=== PATIENT | male | born 1965 | race American Indian/Alaskan Native ===

== ENCOUNTER 2021-11-22 09:41 | Emergency (ER) | payer MEDICAID ==
[2021-11-22] MEDS ORDERED: SODIUM CHLORIDE 0.9% 500 ML 500 ML IV ONE (11:34)
[2021-11-22] MEDS ORDERED: PANTOPRAZOLE 40 MG INJ IV ONE (11:34)
[2021-11-22] MEDS ORDERED: ONDANSETRON 4 MG/2 ML INJ IV ONE (11:34)
[2021-11-22 12:43] LABS: Basophils % (Auto) 0.5 % (0.0-1.8); Eosinophils # (Auto) 0.2 K/mm3 (0.0-0.4); Eosinophils % (Auto) 3.8 % (0.0-4.3); Hematocrit 29.8 % (35.5-45.6); Hemoglobin 9.3 gm/dl (11.8-15.2); Mean Corpuscular HGB Conc 31 % (32-34); Mean Corpuscular Volume 90 fl (84-94); Monocytes # (Auto) 0.6 K/mm3 (0.0-0.8); Platelet Count 349 K/mm3 (140-440); Red Blood Count 3.32 M/mm3 (3.65-5.03); Red Cell Distribution Width 16.4 % (13.2-15.2)
[2021-11-22 12:51] LABS: INR 0.91 (0.87-1.13)
[2021-11-22 13:05] LABS: Alanine Aminotransferase 18 units/L (7-56); Albumin 3.4 g/dL (3.9-5); Blood Urea Nitrogen 16 mg/dL (9-20); Calcium 8.5 mg/dL (8.4-10.2); Hemolysis Index 1
[2021-11-22 13:13] LABS: BUN/Creatinine Ratio 27
--- NOTE | 2021-11-22 13:16 | XRay Report ---
CHEST 1 VIEW 11/22/2021 12:08 PM INDICATION / CLINICAL INFORMATION: GI Bleed. COMPARISON: 03/14/2020 FINDINGS: SUPPORT DEVICES: Tracheostomy tube terminates approximately 4.4 cm from the angy. HEART / MEDIASTINUM: No significant abnormality. LUNGS / PLEURA: No significant pulmonary or pleural abnormality. No pneumothorax. ADDITIONAL FINDINGS: No significant additional findings. IMPRESSION: 1. No acute findings. Signer Name: Dean Felix DO Signed: 11/22/2021 1:12 PM Workstation Name: [id number]
--- NOTE | 2021-11-22 14:01 | Emergency Department Report ---
ED General Adult HPI - General Chief complaint: GI Bleed Stated complaint: VOMITING Time Seen by Provider: 11/22/21 11:34 Source: EMS Mode of arrival: Stretcher Limitations: Altered Mental Status, Physical Limitation - History of Present Illness Initial comments: [place] REPORTS PATIENT HAS A GI BLEED, TRACH PRESENT -: hour(s) Associated Symptoms: denies: denies other symptoms, confusion, chest pain, headaches, loss of appetite - Related Data Home Medications Medication Instructions Recorded Confirmed Last Taken clonazePAM 0.5 mg PO QAM 06/24/14 03/14/20 02/11/20 13:04 Midodrine [Proamatine] 5 mg PO QDAY 11/29/15 03/14/20 02/11/20 13:05 Previous Rx's Medication Instructions Recorded Last Taken Type ALBUTEROL NEB's [Proventil 0.083% 2.5 mg IH Q4HRT PRN nebu 02/12/20 Unknown Rx NEBS] Acetaminophen [Acetaminophen TAB] 650 mg PO Q4H PRN tablet 02/12/20 Unknown Rx Lipase/Protease/Amylase [Pancreaze 1 each FEEDTUBE PRN PRN capsule 02/12/20 Unknown Rx 10,500 Unit] Simple Syrup 30 ml FEEDTUBE PRN PRN oral.liqd 02/12/20 Unknown Rx Sodium Bicarbonate 325 mg FEEDTUBE PRN PRN tablet 02/12/20 Unknown Rx Sodium Chloride 0.9% Int [Sodium 10 ml IV BID syringe 02/12/20 Unknown Rx Chloride Flush Syringe 10 ml] levETIRAcetam [Keppra] 500 mg FEEDTUBE BID@0600,1800 02/12/20 Unknown Rx oral.liqd Amoxicillin Oral Liqd [Amoxicillin 500 mg PO Q8HR 5 Days ml 03/18/20 Unknown Rx Suspension 25 MG/1 ML] Lansoprazole Solutab [Prevacid 30 mg FEEDTUBE QDAY tab.rapdis 03/18/20 Unknown Rx Solutab] metroNIDAZOLE [Flagyl TAB] 500 mg PO Q8HR 5 Days #15 tablet 03/18/20 Unknown Rx polyethylene glycoL 3350 [Miralax 17 gm FEEDTUBE QDAY powd.pack 03/18/20 Unknown Rx 3350] Famotidine [Pepcid] 20 mg PO BID #30 tablet 11/22/21 Unknown Rx Omeprazole 40 mg PO DAILY #30 11/22/21 Unknown Rx Allergies Allergy/AdvReac Type Severity Reaction Status Date / Time No Known Allergies Allergy Unverified 11/22/21 10:06 ED Review of Systems ROS: Stated complaint: VOMITING Other details as noted in HPI Constitutional: denies: chills, fever Eyes: denies: eye pain, eye discharge, vision change ENT: denies: ear pain, throat pain Respiratory: denies: cough, shortness of breath, wheezing Cardiovascular: denies: chest pain, palpitations Endocrine: no symptoms reported Gastrointestinal: denies: abdominal pain, nausea, diarrhea Genitourinary: denies: urgency, dysuria Musculoskeletal: denies: back pain, joint swelling, arthralgia Skin: denies: rash, lesions Neurological: denies: headache, weakness, paresthesias Psychiatric: denies: anxiety, depression Hematological/Lymphatic: denies: easy bleeding, easy bruising ED Past Medical Hx - Past Medical History Hx Heart Attack/AMI: Yes (NSTEMI 06/2014) Hx Congestive Heart Failure: No Hx Diabetes: No Hx Seizures: Yes Hx Asthma: No Hx COPD: No Hx HIV: No Additional medical history: G tube feedings, cerebral palsy - Surgical History Additional Surgical History: g tube, salivary glands lanced - Social History Smoking Status: Never Smoker - Medications Home Medications: Home Medications Medication Instructions Recorded Confirmed Last Taken Type clonazePAM 0.5 mg PO QAM 06/24/14 03/14/20 02/11/20 13:04 History Midodrine [Proamatine] 5 mg PO QDAY 11/29/15 03/14/20 02/11/20 13:05 History ALBUTEROL NEB's [Proventil 0.083% 2.5 mg IH Q4HRT PRN nebu 02/12/20 03/14/20 Unknown Rx NEBS] Acetaminophen [Acetaminophen TAB] 650 mg PO Q4H PRN tablet 02/12/20 03/14/20 Unknown Rx Lipase/Protease/Amylase [Pancreaze 1 each FEEDTUBE PRN PRN capsule 02/12/20 1 05/14/[address] 10,500 Unit] Simple Syrup 30 ml FEEDTUBE PRN PRN oral.liqd 02/12/20 03/14/20 Unknown Rx Sodium Bicarbonate 325 mg FEEDTUBE PRN PRN tablet 02/12/20 03/14/20 Unknown Rx Sodium Chloride 0.9% Int [Sodium 10 ml IV BID syringe 02/12/20 03/14/20 Unknown Rx Chloride Flush Syringe 10 ml] levETIRAcetam [Keppra] 500 mg FEEDTUBE BID@0600,1800 02/12/20 03/14/20 Unknown Rx oral.liqd Amoxicillin Oral Liqd [Amoxicillin 500 mg PO Q8HR 5 Days ml 03/18/20 Unknown Rx Suspension 25 MG/1 ML] Lansoprazole Solutab [Prevacid 30 mg FEEDTUBE QDAY tab.rapdis 03/18/20 Unknown Rx Solutab] metroNIDAZOLE [Flagyl TAB] 500 mg PO Q8HR 5 Days #15 tablet 03/18/20 Unknown Rx polyethylene glycoL 3350 [Miralax 17 gm FEEDTUBE QDAY powd.pack 03/18/20 Unk nown Rx 3350] Famotidine [Pepcid] 20 mg PO BID #30 tablet 11/22/21 Unknown Rx Omeprazole 40 mg PO DAILY #30 11/22/21 Unknown Rx ED Physical Exam - General Limitations: Altered Mental Status, Physical Limitation General appearance: other (trach CP ) - Head Head exam: Present: atraumatic - Eye Eye exam: Present: normal appearance - Cardiovascular Cardiovascular Exam: Present: regular rate - GI/Abdominal GI/Abdominal exam: Present: soft, other (G tube present ) - Neurological Exam Neurological exam: Present: other (cerebral palsy ) ED Course Vital Signs 11/22/21 11/22/21 11/22/21 09:56 10:04 10:35 Temperature 98.5 F Pulse Rate 106 H Respiratory 16 Rate Blood Pressure Blood Pressure 108/79 [Left] O2 Sat by Pulse 99 100 93 Oximetry O2 Sat by Pulse Oximetry [ Assessment] 11/22/21 11/22/21 11/22/21 10:45 11:01 11:14 Temperature Pulse Rate 90 116 H Respiratory 19 19 Rate Blood Pressure 119/68 110/69 Blood Pressure [Left] O2 Sat by Pulse 99 98 100 Oximetry O2 Sat by Pulse Oximetry [ Assessment] 11/22/21 11/22/21 11:15 11:16 Temperature Pulse Rate 88 Respiratory 24 Rate Blood Pressure 110/69 Blood Pressure [Left] O2 Sat by Pulse 99 Oximetry O2 Sat by Pulse 100 Oximetry [ Assessment] ED Medical Decision Making - Lab Data Result diagrams: 11/22/21 12:23 11/22/21 12:23 - Radiology Data Radiology results: report reviewed, image reviewed - Medical Decision Making work up showed stable h.h no active bleeding , vss no distress, pt is under hospice care will add PPI and H1 dexter to his NG tube and follow his H/H , had abhi scope Critical care attestation.: If time is entered above; I have spent that time in minutes in the direct care of this critically ill patient, excluding procedure time. ED Disposition Clinical Impression: Cerebral palsy, Vomiting, Heme + stool Disposition: 03 [facility] Is pt being admited?: No Does the pt Need Aspirin: No Condition: Stable Instructions: Nausea and Vomiting, Adult, Gastrointestinal Bleeding
[2021-11-22 17:34] VITALS: BP 105/64
== END 2021-11-22 17:32 ==
LOC: ED 09:41
DX: G80.9 Cerebral palsy, unspecified (principal); R11.10 Vomiting, unspecified; K92.1 Melena; I21.9 Acute myocardial infarction, unspecified; R56.9 Unspecified convulsions
CPT/HCPCS: 36415; 71045; 80048; 80053; 82140; 83690; 83735; 85025; 85610; 96361; 96374; 96375; 99284; C9113; J2405; J7040

== ENCOUNTER 2022-01-11 20:37 | Emergency (ER) | payer MEDICAID ==
[2022-01-11] MEDS ORDERED: ONDANSETRON 4 MG/2 ML INJ IV ONE (23:19)
--- NOTE | 2022-01-11 23:26 | Emergency Department Report ---
ED N/V/D HPI - General Chief complaint: Nausea/Vomiting/Diarrhea Stated complaint: VOMITING COFFEE GROUND EMESIS Time Seen by Provider: 01/11/22 23:00 Source: patient, EMS Mode of arrival: Stretcher Limitations: No Limitations - History of Present Illness Initial comments: 56 yo M with history cerebral palsy brought in by his child care team lead with concern for nausea and coffee ground emesis that occurred this evening. Pt has history of PUD and had the last Feeding Tube placed in October this year. Tube is been used daily for feeding. No other modifying or associated factors reported. MD complaint: nausea, vomiting - Related Data Home Medications Medication Instructions Recorded Confirmed Last Taken clonazePAM 0.5 mg PO QAM 06/24/14 03/14/20 02/11/20 13:04 Midodrine [Proamatine] 5 mg PO QDAY 11/29/15 03/14/20 02/11/20 13:05 Previous Rx's Medication Instructions Recorded Last Taken Type ALBUTEROL NEB's [Proventil 0.083% 2.5 mg IH Q4HRT PRN nebu 02/12/20 Unknown Rx NEBS] Acetaminophen [Acetaminophen TAB] 650 mg PO Q4H PRN tablet 02/12/20 Unknown Rx Lipase/Protease/Amylase [Pancreaze 1 each FEEDTUBE PRN PRN capsule 02/12/20 Unknown Rx 10,500 Unit] Simple Syrup 30 ml FEEDTUBE PRN PRN oral.liqd 02/12/20 Unknown Rx Sodium Bicarbonate 325 mg FEEDTUBE PRN PRN tablet 02/12/20 Unknown Rx Sodium Chloride 0.9% Int [Sodium 10 ml IV BID syringe 02/12/20 Unknown Rx Chloride Flush Syringe 10 ml] levETIRAcetam [Keppra] 500 mg FEEDTUBE BID@0600,1800 02/12/20 Unknown Rx oral.liqd Amoxicillin Oral Liqd [Amoxicillin 500 mg PO Q8HR 5 Days ml 03/18/20 Unknown Rx Suspension 25 MG/1 ML] Lansoprazole Solutab [Prevacid 30 mg FEEDTUBE QDAY tab.rapdis 03/18/20 Unknown Rx Solutab] metroNIDAZOLE [Flagyl TAB] 500 mg PO Q8HR 5 Days #15 tablet 03/18/20 Unknown Rx polyethylene glycoL 3350 [Miralax 17 gm FEEDTUBE QDAY powd.pack 03/18/20 Unknown Rx 3350] Famotidine [Pepcid] 20 mg PO BID #30 tablet 11/22/21 Unknown Rx Omeprazole 40 mg PO DAILY #30 11/22/21 Unknown Rx Allergies Allergy/AdvReac Type Severity Reaction Status Date / Time No Known Allergies Allergy Unverified 11/22/21 10:06 ED Review of Systems ROS: Stated complaint: VOMITING COFFEE GROUND EMESIS Other details as noted in HPI Comment: All other systems reviewed and negative Gastrointestinal: nausea, vomiting. denies: diarrhea, constipation ED Past Medical Hx - Past Medical History Hx Heart Attack/AMI: Yes (NSTEMI 06/2014) Hx Congestive Heart Failure: No Hx Diabetes: No Hx Seizures: Yes Hx Asthma: No Hx COPD: No Hx HIV: No Additional medical history: G tube feedings, cerebral palsy - Surgical History Additional Surgical History: g tube, salivary glands lanced - Social History Smoking Status: Never Smoker - Medications Home Medications: Home Medications Medication Instructions Recorded Confirmed Last Taken Type clonazePAM 0.5 mg PO QAM 06/24/14 03/14/20 02/11/20 13:04 History Midodrine [Proamatine] 5 mg PO QDAY 11/29/15 03/14/20 02/11/20 13:05 History ALBUTEROL NEB's [Proventil 0.083% 2.5 mg IH Q4HRT PRN nebu 02/12/20 03/14/20 Unknown Rx NEBS] Acetaminophen [Acetaminophen TAB] 650 mg PO Q4H PRN tablet 02/12/20 03/14/20 Unknown Rx Lipase/Protease/Amylase [Pancreaze 1 each FEEDTUBE PRN PRN capsule 02/12/20 03/14/[address] 10,500 Unit] Simple Syrup 30 ml FEEDTUBE PRN PRN oral.liqd 02/12/20 03/14/20 Unknown Rx Sodium Bicarbonate 325 mg FEEDTUBE PRN PRN tablet 02/12/20 03/14/20 Unknown Rx Sodium Chloride 0.9% Int [Sodium 10 ml IV BID syringe 02/12/20 03/14/20 Unknown Rx Chloride Flush Syringe 10 ml] levETIRAcetam [Keppra] 500 mg FEEDTUBE BID@0600,1800 02/12/20 03/14/20 Unknown Rx oral.liqd Amoxicillin Oral Liqd [Amoxicillin 500 mg PO Q8HR 5 Days ml 03/18/20 Unknown Rx Suspension 25 MG/1 ML] Lansoprazole Solutab [Prevacid 30 mg FEEDTUBE QDAY tab.rapdis 03/18/20 Unknown Rx Solutab] metroNIDAZOLE [Flagyl TAB] 500 mg PO Q8HR 5 Days #15 tablet 03/18/20 Unknown Rx polyethylene glycoL 3350 [Miralax 17 gm FEEDTUBE QDAY powd.pack 03/18/20 Unknown Rx 3350] Famotidine [Pepcid] 20 mg PO BID #30 tablet 11/22/21 Unknown Rx Omeprazole 40 mg PO DAILY #30 11/22/21 Unknown Rx ED Physical Exam - General Limitations: No Limitations General appearance: other (Cerebral palsy but stable) - Head Head exam: Present: atraumatic - ENT ENT exam: Present: normal orophraynx, mucous membranes moist, other (sticking out his tongue) - Neck Neck exam: Present: other (Tracheotomy tube). Absent: tenderness - Respiratory Respiratory exam: Present: normal lung sounds bilaterally. Absent: respiratory distress, accessory muscle use - Cardiovascular Cardiovascular Exam: Present: regular rate, normal rhythm, normal heart sounds - GI/Abdominal GI/Abdominal exam: Present: soft, normal bowel sounds, other (feeding tube in place with no leakage ). Absent: distended, tenderness - Extremities Exam Extremities exam: Absent: pedal edema - Back Exam Back exam: Absent: tenderness - Skin Skin exam: Present: warm, normal color ED Course Vital Signs 01/11/22 01/11/22 01/11/22 22:24 22:30 22:35 Temperature 98.9 F Pulse Rate 84 Respiratory 15 Rate Blood Pressure Blood Pressure 130/93 [Left] O2 Sat by Pulse 96 99 98 Oximetry 01/11/22 01/11/22 01/11/22 22:46 23:01 23:15 Temperature Pulse Rate Respiratory Rate Blood Pressure 130/93 143/85 Blood Pressure [Left] O2 Sat by Pulse 99 96 96 Oximetry 01/11/22 01/11/22 01/12/22 23:31 23:45 00:00 Temperature Pulse Rate Respiratory Rate Blood Pressure 114/81 112/62 Blood Pressure [Left] O2 Sat by Pulse 97 97 96 Oximetry 01/12/22 01/12/22 01/12/22 00:15 00:31 00:45 Temperature Pulse Rate Respiratory Rate Blood Pressure 121/79 162/98 119/77 Blood Pressure [Left] O2 Sat by Pulse 100 99 97 Oximetry 01/12/22 01/12/22 01/12/22 01:01 01:15 01:31 Temperature Pulse Rate Respiratory Rate Blood Pressure 119/77 162/98 141/76 Blood Pressure [Left] O2 Sat by Pulse 97 98 96 Oximetry 01/12/22 01/12/22 01/12/22 01:46 02:01 02:15 Temperature Pulse Rate Respiratory Rate Blood Pressure 115/53 115/53 113/69 Blood Pressure [Left] O2 Sat by Pulse 76 L 80 L 100 Oximetry 01/12/22 01/12/22 01/12/22 02:31 02:45 03:01 Temperature Pulse Rate Respiratory Rate Blood Pressure 107/80 113/69 113/69 Blood Pressure [Left] O2 Sat by Pulse 92 98 99 Oximetry 01/12/22 01/12/22 01/12/22 03:16 03:31 03:45 Temperature Pulse Rate Respiratory Rate Blood Pressure 115/75 131/89 123/78 Blood Pressure [Left] O2 Sat by Pulse 99 99 98 Oximetry 01/12/22 01/12/22 01/12/22 04:01 04:15 04:31 Temperature Pulse Rate Respiratory Rate Blood Pressure 123/78 115/89 102/60 Blood Pressure [Left] O2 Sat by Pulse 96 96 93 Oximetry 01/12/22 04:36 Temperature 98.0 F Pulse Rate 77 Respiratory 15 Rate Blood Pressure Blood Pressure 102/60 [Left] O2 Sat by Pulse 93 Oximetry ED Medical Decision Making - Lab Data Result diagrams: 01/12/22 00:43 01/12/22 00:43 - Radiology Data FINDINGS: Images were obtained as best possible in a right anterior oblique position. Lung bases show mild chronic changes. Small nodule in the right base is stable. No obvious pneumonic infiltrates with previous left basilar density clear. PEG tube is now situated in the stomach. Moderate hiatal hernia again seen. Gallbladder without obvious calculi and without definite acute abnormalities. No biliary dilatation. No abnormalities seen of liver, spleen, adrenals, or right kidney. Minimal left nephrolithiasis without acute change. Ureters not dilated and without obvious calculi. Urinary bladder poorly distended. Prostate moderately enlarged. Seminal vesicles are symmetric. Large amount of colonic stool without dilatation again seen. No evidence of bowel obstruction. No inflammatory changes. No free fluid. No lymphadenopathy. Appendix not visualized. The junction of the tail and body of the pancreas shows a bulging appearance not as clearly seen previously. There may be slight hypodensity in this area which is ill-defined. No inflammation is noted. No pancreatic ductal dilatation is seen. Area of bulging has an AP diameter 3.5 cm. IMPRESSION: 1. Continued evidence of chronic prominent constipation 2. Minimal left nephrolithiasis without acute change seen 3. Question of pancreatic mass. Follow-up with multiphase CT may be useful. - Medical Decision Making here with possible GI bleeding -- will go ahead and check his H&H with other routine labs-- and order his CT abd/pel for possible SBO--in the meantime will add zofran + protonix while waiting for the above-- Critical care attestation.: If time is entered above; I have spent that time in minutes in the direct care of this critically ill patient, excluding procedure time. ED Disposition Clinical Impression: Nausea and vomiting in adult patient Constipation Qualifiers: Constipation type: unspecified constipation type Qualified Code(s): K59.00 - Constipation, unspecified Disposition: 01 HOME / SELF CARE / HOMELESS Is pt being admited?: No Does the pt Need Aspirin: No Condition: Stable Instructions: Nausea and Vomiting, Adult, [id number], Constipation, Adult, [id number] Additional Instructions: It is very important that this patient is given appropriate stool softener to help move his bowel as this likely because of the nausea and vomiting Please call and have this patient follow-up with his primary doctor in 3 to 5 days for reassessment and treatment Please do not hesitate to call or return to emergency room if his symptoms worsening Time of Disposition: 04:43
[2022-01-12] MEDS ORDERED: LANSOPRAZOLE 30 MG SOLUTAB FEEDTUBE ONE (00:15)
[2022-01-12 00:50] LABS: Basophils % (Auto) 0.7 % (0.0-1.8); Eosinophils # (Auto) 0.3 K/mm3 (0.0-0.4); Eosinophils % (Auto) 4.3 % (0.0-4.3); Lymphocytes # (Auto) 1.1 K/mm3 (1.2-5.4); Lymphocytes % (Auto) 15.7 % (13.4-35.0); Mean Corpuscular HGB Conc 29 % (32-34); Mean Corpuscular Volume 80 fl (84-94); Monocytes # (Auto) 0.5 K/mm3 (0.0-0.8); Platelet Count 359 K/mm3 (140-440); Red Blood Count 3.78 M/mm3 (3.65-5.03); Red Cell Distribution Width 17.8 % (13.2-15.2)
[2022-01-12 00:55] LABS: Hematocrit 30.4 % (35.5-45.6); Hemoglobin 8.9 gm/dl (11.8-15.2)
[2022-01-12 01:13] LABS: Alanine Aminotransferase 17 units/L (7-56); Albumin 3.6 g/dL (3.9-5); Blood Urea Nitrogen 16 mg/dL (9-20); Calcium 8.4 mg/dL (8.4-10.2); Hemolysis Index 48
[2022-01-12 01:23] LABS: BUN/Creatinine Ratio 27
--- NOTE | 2022-01-12 04:00 | Cat Scan Report ---
CT ABDOMEN AND PELVIS WITHOUT CONTRAST INDICATION: Nausea, Vomiting and Diarrhea CONTRAST: Without IV COMPARISON: 03/14/[address] scans at this location are performed using CT dose reduction for ALARA by means of automated e xposure control. FINDINGS: Images were obtained as best possible in a right anterior oblique position. Lung bases show mild chronic changes. Small nodule in the right base is stable. No obvious pneumonic infiltrates with previous left basilar density clear. PEG tube is now situated in the stomach. Moderate hiatal hernia again seen. Gallbladder without obvio us calculi and without definite acute abnormalities. No biliary dilatation. No abnormalities seen of liver, spleen, adrenals, or right kidney. Minimal left nephrolithiasis without acute change. Ureters not dilated and without obvious calculi. Urinary bladder poorly distended. Prostate moderately enlarg ed. Seminal vesicles are symmetric. Large amount of colonic stool without dilatation again seen. No e vidence of bowel obstruction. No inflammatory changes. No free fluid. No lymphadenopathy. Appendix no t visualized. The junction of the tail and body of the pancreas shows a bulging appearance not as clearly seen prev iously. There may be slight hypodensity in this area which is ill-defined. No inflammation is noted. No pancreatic ductal dilatation is seen. Area of bulging has an AP diameter 3.5 cm. IMPRESSION: 1. Continued evidence of chronic prominent constipation 2. Minimal left nephrolithiasis without acute change seen 3. Question of pancreatic mass. Follow-up with multiphase CT may be useful. Signer Name: Bhavesh Carrillo MD Signed: 01/12/2022 3:56 AM Workstation Name: [id number]
[2022-01-12 04:37] VITALS: BP 102/60
== END 2022-01-12 04:58 | disposition home or self-care (01) ==
LOC: ED 20:37
DX: R11.2 Nausea with vomiting, unspecified (principal); K59.00 Constipation, unspecified
CPT/HCPCS: 36415; 74176; 80053; 83690; 85025; 96374; 99284